=== PATIENT | male | born 1990 | race Caucasian/White ===

== ENCOUNTER → 2017-06-18 | Outpatient (CLI) | payer OTHER ==
[~2017-06-18] MED LIST: Z.0.NO CURRENT MEDS
--- NOTE | 2017-06-18 13:59 | EKG ---
Date Performed: 06/18/2017 Time Performed: 13:26:02 PTAGE: 27 years EKG: Sinus rhythm NORMAL ECG NO PREVIOUS TRACING DOCTOR: Pankaj Dupont Interpretating Date/Time 06/18/2017 13:57:48
== END ==
LOC: HEEG 13:03
PROVIDERS: ATTEND Psychiatry & Neurology Child & Adolescent Psychiatry
DX: F33.0 Major depressive disorder, recurrent, mild (principal); F41.8 Other specified anxiety disorders
CPT/HCPCS: 93005